=== PATIENT | female | born 1955 | race Two or more races ===

== ENCOUNTER 2018-02-02 11:32 | Inpatient (IN) | payer MEDICAID, OTHER ==
[~2018-02-02] VITALS: Ht 154.9 cm; Wt 63.5 kg
[2018-02-02] MEDS ORDERED: OMEP20TA20 PO (11:46)
[2018-02-02] MEDS ORDERED: LEVO75TA7 PO (11:47)
--- NOTE | 2018-02-02 11:56 | NUR ---
MSE DONE BY DR NIX IN ROOM 02A
[2018-02-02] MEDS ORDERED: ONDANSETRON 4 MG/2 ML VIAL IV ONE (12:00)
[2018-02-02] MEDS ORDERED: IV NORMAL SALINE 1000 ML BAG IV ONE (12:00)
[2018-02-02] MEDS ORDERED: ONDANSETRON IV *ER 4 MG/2 ML VIAL IV ONE (12:15)
[2018-02-02] MEDS ORDERED: HYDROMORPHONE 1 MG/1 ML DISP.SYRIN IV ONE (12:15)
[2018-02-02] MEDS ORDERED: PANTOPRAZOLE SODIUM 40 MG VIAL IV ONE (12:15)
[2018-02-02 12:19] LABS: BASOPHILS % (AUTO) 0.2 % (0.0-2.0); EOSINOPHILS % (AUTO) 0.1 % (0.0-7.0); HEMATOCRIT 40.2 % (31.2-41.9); HEMOGLOBIN 13.1 g/dL (10.9-14.3); LYMPHOCYTES # (AUTO) 1.6 K/uL (20.0-40.0); LYMPHOCYTES % (AUTO) 15.6 % (20.5-51.5); MEAN CORPUSCULAR HEMOGLOBIN 24.1 uug (24.7-32.8); MEAN CORPUSCULAR HGB CONC 33 g/dL (32.3-35.6); MEAN CORPUSCULAR VOLUME 73.8 fL (75.5-95.3); MONOCYTES % (AUTO) 9.5 % (0.0-11.0); NEUTROPHILS # (AUTO) 7.8 K/uL (1.8-8.9); NEUTROPHILS % (AUTO) 74.6 % (38.5-71.5); PLATELET COUNT (AUTO) 277 K/uL (179-408); RED BLOOD CELL COUNT(AUTO) 5.44 MIL/uL (3.63-4.92); WHITE BLOOD COUNT (AUTO) 10.4 K/uL (3.8-11.8)
[2018-02-02] MEDS ORDERED: ONDANSETRON 4 MG/2 ML VIAL ONE ×2 (12:20→12:26)
[2018-02-02] MEDS ORDERED: HYDROMORPHONE 2 MG/1 ML DISP.SYRIN ONE (12:20)
[2018-02-02 12:25] LABS: CREATININE 0.9 mg/dL (0.6-1.3); POTASSIUM 3.9 mmol/L (3.5-5.1)
[2018-02-02] MEDS ORDERED: PANTOPRAZOLE SODIUM 40 MG VIAL ONE (12:26)
[2018-02-02 12:32] LABS: BILIRUBIN,DIRECT 2.8 mg/dL (0.0-0.2); BILIRUBIN,TOTAL 4.8 mg/dL (0.2-1.0); TOTAL PROTEIN, SERUM 7.7 g/dL (6.4-8.2)
[2018-02-02 12:38] LABS: BAND % (MANUAL) 1 % (0-10); LYMPHOCYTES % (MANUAL) 15 % (20-40); MONOCYTES % (MANUAL) 11 % (2-10); NEUTROPHILS % (MANUAL) 73 % (42-75)
[2018-02-02 13:25] LABS: *BLOOD, URINE Trace-intact (NEGATIVE); *COLOR,URINE DARK YELLOW (YELLOW); *KETONES,URINE 2+ (NEGATIVE); *PROTEIN,URINE 1+ (NEGATIVE); LEUKOCYTE ESTERASE ,URINE NEGATIVE (NEGATIVE); NITRITE, URINE NEGATIVE (NEGATIVE); PH,URINE 6.5 (5.0-8.0); UGLUCOSE NEGATIVE (NEGATIVE)
[2018-02-02 13:32] LABS: *BILIRUBIN,URIN 3+ (NEGATIVE); *CLARITY,URINE HAZY (CLEAR)
[2018-02-02 13:34] LABS: BACTERIA,URINE NONE SEEN /HPF (NONE SEEN); MUCUS,URINE FEW /LPF (0-FEW); SQUAMOUS EPITHELIAL CELL,UR FEW /HPF (NONE SEEN); WBC,URINE 0-3 /HPF (0-3)
--- NOTE | 2018-02-02 13:36 | NUR ---
PATIENT WAS SEEN BY STEPHANIE DEE AT BEDSIDE ROOM 02A.
--- NOTE | 2018-02-02 13:54 | NUR ---
Pt. admitted to [facility] , under care of / STEPHANIE RADIO BOARD OPERATOR ANNOUNCER Belongs List completed
[2018-02-02] MEDS ORDERED: ONDANSETRON 4 MG/2 ML VIAL IV PRN (14:00)
[2018-02-02] MEDS ORDERED: Z GUARD REMEDY PASTE 57 GM TUBE TOP PRN (14:00)
[2018-02-02] MEDS ORDERED: MORPHINE SULFATE 2 MG/1 ML DISP.SYRIN IV PRN (14:00)
[2018-02-02] MEDS ORDERED: ACETAMINOPHEN 325 MG TABLET PO PRN (14:00)
[2018-02-02] MEDS ORDERED: MAGNESIUM HYDROXIDE 30 ML LIQUID UDC PO PRN (14:00)
[2018-02-02] MEDS ORDERED: TEMAZEPAM 15 MG CAPSULE PO PRN (14:00)
[2018-02-02] MEDS ORDERED: MORPHINE SULFATE 4 MG/1 ML DISP.SYRIN IV PRN (14:45)
[2018-02-02 14:53] VITALS: BP 102/61
--- NOTE | 2018-02-02 14:55 | NUR ---
62 year old female received from er via gurney for abdominal pain .pt is axox4.orient the pt to room and surroundings , called for the admission orders,call light with in reach
--- NOTE | 2018-02-02 15:17 | NUR ---
TEXTED DR. CASTILLO FOR [facility] APPROVAL.
[2018-02-02] MEDS: IV NS 1000 ML 1,000 ML IV PRN (15:36)
[2018-02-02 20:00] VITALS: BP 109/64
--- NOTE | 2018-02-02 20:00 | NUR ---
RECEIVED PATIENT AWAKE IN BED, SHE'S AAXO4. DENIES PAIN OR ANY DISCOMFORT, NO ACUTE DISTRESS ON ASSESSMENT. SAFETY MEASURES IN PLACE, CALL LIGHT LEFT WITHIN PATIENT'S REACH
[2018-02-03] MEDS: IV NS 1000 ML 1,000 ML IV PRN (03:53)
[2018-02-03 04:00] VITALS: BP 104/58
--- NOTE | 2018-02-03 05:36 | NUR ---
PATIENT SLEPT WELL T/O THE NIGHT. NO C/O PAIN OR ACUTE DISTRESS ON THIS SHIFT. VSS STABLE, NO SIGNIFICANT CHANGES IN STATUS. SAFETY MEASURES MAINTAINED AT ALL TIMES
[2018-02-03 07:02] LABS: BILIRUBIN,TOTAL 6.7 mg/dL (0.2-1.0); CREATININE 0.6 mg/dL (0.6-1.3); MAGNESIUM 1.9 mg/dL (1.8-2.4); PHOSPHOROUS 2.8 mg/dL (2.5-4.9); POTASSIUM 3.4 mmol/L (3.5-5.1); TOTAL PROTEIN, SERUM 6.2 g/dL (6.4-8.2)
[2018-02-03 07:09] LABS: LYMPHOCYTES % (AUTO) 23.5 % (20.5-51.5); NEUTROPHILS % (AUTO) 66.7 % (38.5-71.5)
[2018-02-03 07:10] LABS: BASOPHILS % (AUTO) 0.3 % (0.0-2.0); EOSINOPHILS % (AUTO) 0.4 % (0.0-7.0); LYMPHOCYTES # (AUTO) 2.1 K/uL (20.0-40.0); MONOCYTES # (AUTO) 0.8 K/uL (2.0-10.0); MONOCYTES % (AUTO) 9.1 % (0.0-11.0)
[2018-02-03 07:11] LABS: HEMATOCRIT 34.4 % (31.2-41.9); HEMOGLOBIN 11.1 g/dL (10.9-14.3); MEAN CORPUSCULAR HEMOGLOBIN 23.9 uug (24.7-32.8); MEAN CORPUSCULAR HGB CONC 32 g/dL (32.3-35.6); MEAN CORPUSCULAR VOLUME 73.8 fL (75.5-95.3); PLATELET COUNT (AUTO) 210 K/uL (179-408); RED BLOOD CELL COUNT(AUTO) 4.66 MIL/uL (3.63-4.92); WHITE BLOOD COUNT (AUTO) 9.1 K/uL (3.8-11.8)
[2018-02-03] MEDS ORDERED: PANTOPRAZOLE SODIUM 40 MG VIAL IV SCH (09:00)
[2018-02-03 11:40] VITALS: BP 100/50
[2018-02-03] MEDS ORDERED: POTASSIUM CHLORIDE 50 ML IV SCH (13:45)
--- NOTE | 2018-02-03 14:53 | NUR ---
D/C ORDERS RECEIVED NOTED AND CARRIED OUT,D/C INSTRUCTION AND RN REPORT GIVEN TO SAKINA BOWMAN OVER [facility] PT LEFT THE FACILITY VIA AMBULANCES IN STABLE CONDITION
== END 2018-02-03 15:00 | disposition short-term general hospital (02) ==
LOC: ER 11:40 → OBSER 13:53 → MED 14:09
PROVIDERS: ADMIT Internal Medicine; ATTEND Nurse Practitioner Acute Care
DX: K80.51 Calculus of bile duct without cholangitis or cholecystitis with obstruction (principal); E44.0 Moderate protein-calorie malnutrition; E03.9 Hypothyroidism, unspecified; R17 Unspecified jaundice; Z90.49 Acquired absence of other specified parts of digestive tract; Z79.899 Other long term (current) drug therapy; Z68.26 Body mass index [BMI] 26.0-26.9, adult; E66.9 Obesity, unspecified; R74.0 Nonspecific elevation of levels of transaminase and lactic acid dehydrogenase [LDH]; Z87.11 Personal history of peptic ulcer disease
CPT/HCPCS: 36415; 70030-TC; 71045; 74181; 76700; 83690; 83735; 84100; 85025; 85730; 87086; 93005; A4663; C9113; J1170; J2405; J7030